=== PATIENT | female | born 1940 | race Caucasian/White ===

== ENCOUNTER 2018-11-30 19:13 | Inpatient (IN) | payer OTHER, MEDICAID ==
[~2018-11-30] VITALS: Ht 152.4 cm; Wt 46.7 kg
[2018-11-30] MEDS ORDERED: MORPHINE SULFATE 4 MG/ML CPJ (NOT FOR IM USE) IV STA (21:08)
[2018-11-30] MEDS ORDERED: ONDANSETRON HCL 4MG/2ML INJ IV STA (21:08)
[2018-11-30] MEDS ORDERED: SODIUM CHLORIDE 0.9% 1,000 ML IV ONE (21:08)
[2018-11-30 21:52] LABS: BASOPHILS % 0.5 % (0.0-2.0); EOSINOPHILS % 2.4 % (0.0-5.0); HEMATOCRIT. 33.5 % (36.0-48.0); HEMOGLOBIN. 11.1 g/dL (12.0-16.0); LYMPHOCYTES % 27.7 % (20.0-50.0); MEAN CORPUSCULAR HEMOGLOBIN 32.1 pg (28.0-32.0); MEAN CORPUSCULAR VOLUME 97.2 fL (81.0-99.0); MEAN PLATELET VOLUME 9.6 fl (7.4-10.4); MONOCYTES % 8.4 % (2.0-8.0); PLATELET 231 x1000/uL (130-400); RED BLOOD CELL COUNT 3.45 mill/uL (4.2-5.4); RED CELL DISTRIBUTION WIDTH 14.1 % (11.6-14.6)
[2018-11-30 21:58] LABS: CHLORIDE 109 mEq/L (98-107)
[2018-11-30 22:02] LABS: PARTIAL THROMBOPLASTIN TIME 27.1 sec (23.4-31.0); PROTHROMBIN TIME 10.3 sec (9.1-11.1)
[2018-11-30] MEDS ORDERED: ASPIRIN 81MG TABLET PO ONE (23:00)
[2018-11-30 23:39] LABS: CLARITY URINE CLEAR (CLEAR); COLOR URINE YELLOW (YELLOW); KETONES URINE NEGATIVE (NEGATIVE); LEUKOCYTE ESTERASE URINE 2+ (NEGATIVE); NITRITE URINE NEGATIVE (NEGATIVE); OCCULT BLOOD URINE NEGATIVE (NEGATIVE); PH URINE 5.5 (4.5-8.0); PROTEIN URINE NEGATIVE (NEGATIVE); SPECIFIC GRAVITY URINE 1.011 (1.005-1.030); UROBILINOGEN URINE 0.2 E.U./dL (0.2-1.0)
[2018-11-30] MEDS ORDERED: CEFTRIAXONE 1 G PREMIX 50 ML IV ONE (23:45)
[2018-12-01] MEDS ORDERED: MAGNESIUM/ALUMINUM HYDROXIDE/SIMETHICONE 30ML UDC PO PRN
[2018-12-01] MEDS ORDERED: IPRATROPIUM/ALBUTEROL 0.5-3(2.5)MG/3ML NEB INH PRN
[2018-12-01] MEDS ORDERED: CLONIDINE 0.1MG TABLET PO PRN
[2018-12-01] MEDS ORDERED: DOCUSATE SODIUM 100MG CAPSULE PO PRN
[2018-12-01] MEDS ORDERED: ONDANSETRON HCL 4MG/2ML INJ IV PRN
[2018-12-01] MEDS ORDERED: ENOXAPARIN 40MG/0.4ML SYR SUBCUT SCH
[2018-12-01] MEDS ORDERED: ACETAMINOPHEN 325MG TABLET PO PRN
[2018-12-01] MEDS: HYDROCODONE/ACETAMINOPHEN 5/325MG TABLET PO PRN ×3 (04:21→17:47)
[2018-12-01 05:18] LABS: BASOPHILS % 0.5 % (0.0-2.0); HEMATOCRIT. 31.6 % (36.0-48.0); HEMOGLOBIN. 10.3 g/dL (12.0-16.0); LYMPHOCYTES % 33.2 % (20.0-50.0); MEAN CORPUSCULAR HEMOGLOBIN 31.8 pg (28.0-32.0); MEAN CORPUSCULAR VOLUME 97.3 fL (81.0-99.0); MEAN PLATELET VOLUME 9.5 fl (7.4-10.4); MONOCYTES % 10.5 % (2.0-8.0); NEUTROPHILS % 52.8 % (40.0-76.0); PLATELET 221 x1000/uL (130-400); RED BLOOD CELL COUNT 3.25 mill/uL (4.2-5.4); RED CELL DISTRIBUTION WIDTH 14.2 % (11.6-14.6)
[2018-12-01 05:28] LABS: LDL CHOLESTEROL 146 mg/dL (5-100)
[2018-12-01 05:30] LABS: CREATINE KINASE 35 IU/L (26-192); HDL CHOLESTEROL 59 mg/dL (40-59)
[2018-12-01 05:32] LABS: CREATINE KINASE MB FRACTION < 1.0 ng/mL (0.5-3.6)
[2018-12-01 08:53] VITALS: BP 130/65
[2018-12-01] MEDS ORDERED: LINA5TAB MT (10:11)
[2018-12-01] MEDS ORDERED: ALLO100T MT (10:11)
[2018-12-01] MEDS ORDERED: ESCI5TAB10 MT (10:11)
[2018-12-01] MEDS ORDERED: BENA20TA10 MT (10:11)
[2018-12-01] MEDS ORDERED: AMLO10TA80 MT (10:11)
[2018-12-01] MEDS ORDERED: BISA10SU21 RC (10:11)
[2018-12-01] MEDS: ENOXAPARIN 30MG/0.3ML SYR SUBCUT SCH (10:34)
[2018-12-01] MEDS: SODIUM CHLORIDE 0.9% 1,000 ML IV SCH (11:36)
[2018-12-01 12:00] VITALS: BP 104/52
[2018-12-01 12:37] LABS: *AMPHETAMINES SCREEN URINE NEGATIVE (NEGATIVE)
[2018-12-01 12:38] LABS: *BARBITURATES SCREEN URINE NEGATIVE (NEGATIVE); *BENZODIAZEPINES SCREEN URINE NEGATIVE (NEGATIVE); *COCAINE SCREEN URINE NEGATIVE (NEGATIVE); METHADONE URINE SCREEN NEGATIVE (NEGATIVE); OPIATES URINE SCREEN PRESUMTIVE POSITIVE (NEGATIVE); PHENCYCLIDINE URINE SCREEN NEGATIVE (NEGATIVE)
[2018-12-01 12:39] LABS: CANNABINOID URINE SCREEN NEGATIVE (NEGATIVE)
[2018-12-01] MEDS ORDERED: LACTULOSE 20G/30ML UDC PO SCH (14:00)
[2018-12-01 16:00] VITALS: BP 110/53
[2018-12-01] MEDS ORDERED: DEXTROSE 50% WATER 50ML SYRINGE IV PRN (16:30)
[2018-12-01 17:06] LABS: CREATINE KINASE 32 IU/L (26-192)
[2018-12-01 17:07] LABS: CREATINE KINASE MB FRACTION < 1.0 ng/mL (0.5-3.6)
[2018-12-01] MEDS: INSULIN LISPRO 100 UNITS/ML SUBCUT SCH ×2 (17:40→21:00)
[2018-12-01] MEDS: BLOOD SUGAR DIAGNOSTIC STRIP TEST SCH ×2 (17:42→21:08)
[2018-12-01 20:00] VITALS: BP 105/52
[2018-12-01] MEDS: AMLODIPINE 5MG TABLET PO SCH (21:00)
[2018-12-01] MEDS: ATORVASTATIN CALCIUM 40MG TABLET PO SCH (21:18)
[2018-12-01] MEDS: CEFTRIAXONE 1 G PREMIX 50 ML IV SCH (21:18)
[2018-12-02] VITALS: BP 104/50
[2018-12-02] MEDS: HYDROCODONE/ACETAMINOPHEN 5/325MG TABLET PO PRN ×3 (01:03→17:25)
[2018-12-02 04:00] VITALS: BP_SYST 105; BP_SYST 110; BP_SYST 98; BP_DIAS 48; BP_DIAS 52; BP_DIAS 58
[2018-12-02] MEDS: INSULIN LISPRO 100 UNITS/ML SUBCUT SCH ×3 (05:51→21:00)
[2018-12-02] MEDS: BLOOD SUGAR DIAGNOSTIC STRIP TEST SCH ×4 (05:51→21:00)
[2018-12-02 06:28] LABS: BASOPHILS % 0.5 % (0.0-2.0); EOSINOPHILS % 2.9 % (0.0-5.0); HEMATOCRIT. 29.8 % (36.0-48.0); HEMOGLOBIN. 9.8 g/dL (12.0-16.0); LYMPHOCYTES % 32.3 % (20.0-50.0); MEAN CORPUSCULAR HEMOGLOBIN 32.1 pg (28.0-32.0); MEAN CORPUSCULAR VOLUME 97.6 fL (81.0-99.0); MEAN PLATELET VOLUME 9.6 fl (7.4-10.4); MONOCYTES % 9.8 % (2.0-8.0); NEUTROPHILS % 54.5 % (40.0-76.0); PLATELET 211 x1000/uL (130-400); RED BLOOD CELL COUNT 3.05 mill/uL (4.2-5.4); RED CELL DISTRIBUTION WIDTH 14.2 % (11.6-14.6)
[2018-12-02 08:00] VITALS: BP 141/61
[2018-12-02] MEDS: AMLODIPINE 5MG TABLET PO SCH ×2 (09:32→22:00)
[2018-12-02] MEDS: ENOXAPARIN 30MG/0.3ML SYR SUBCUT SCH (09:33)
[2018-12-02 12:00] VITALS: BP 138/60
[2018-12-02 16:00] VITALS: BP 128/68
[2018-12-02] MEDS: SODIUM CHLORIDE 0.9% 1,000 ML IV SCH (17:23)
[2018-12-02 20:00] VITALS: BP 123/57
[2018-12-02] MEDS: ATORVASTATIN CALCIUM 40MG TABLET PO SCH (22:00)
[2018-12-02] MEDS: CEFTRIAXONE 1 G PREMIX 50 ML IV SCH (22:01)
[2018-12-03] VITALS: BP 114/55
[2018-12-03] MEDS: HYDROCODONE/ACETAMINOPHEN 5/325MG TABLET PO PRN ×3 (01:44→17:41)
[2018-12-03 04:00] VITALS: BP 141/70
[2018-12-03 05:55] LABS: BASOPHILS % 0.5 % (0.0-2.0); EOSINOPHILS % 3.1 % (0.0-5.0); HEMATOCRIT. 29.5 % (36.0-48.0); HEMOGLOBIN. 9.8 g/dL (12.0-16.0); LYMPHOCYTES % 30.1 % (20.0-50.0); MEAN CORPUSCULAR HEMOGLOBIN 32.4 pg (28.0-32.0); MEAN CORPUSCULAR VOLUME 96.9 fL (81.0-99.0); MEAN PLATELET VOLUME 10.1 fl (7.4-10.4); MONOCYTES % 8.3 % (2.0-8.0); PLATELET 217 x1000/uL (130-400); RED BLOOD CELL COUNT 3.04 mill/uL (4.2-5.4); RED CELL DISTRIBUTION WIDTH 14.3 % (11.6-14.6)
[2018-12-03 06:33] LABS: CHLORIDE 113 mEq/L (98-107)
[2018-12-03] MEDS: BLOOD SUGAR DIAGNOSTIC STRIP TEST SCH ×4 (07:29→21:30)
[2018-12-03] MEDS: INSULIN LISPRO 100 UNITS/ML SUBCUT SCH ×4 (07:29→21:00)
[2018-12-03 08:00] VITALS: BP 143/75
[2018-12-03] MEDS: ASPIRIN 325MG EC TABLET PO SCH (09:18)
[2018-12-03] MEDS: ENOXAPARIN 30MG/0.3ML SYR SUBCUT SCH (09:19)
[2018-12-03] MEDS: AMLODIPINE 5MG TABLET PO SCH ×2 (09:19→21:30)
[2018-12-03 09:37] LABS: T4 FREE 1.25 ng/dL (0.76-1.46)
[2018-12-03 10:41] LABS: FOLIC ACID (FOLATE) SERUM 14.6 ng/mL (>5.38)
[2018-12-03 12:00] VITALS: BP 131/69
[2018-12-03 16:00] VITALS: BP 112/59
[2018-12-03] MEDS: SODIUM CHLORIDE 0.9% 1,000 ML IV SCH (17:40)
[2018-12-03 20:00] VITALS: BP 127/81
[2018-12-03] MEDS: ATORVASTATIN CALCIUM 40MG TABLET PO SCH (21:30)
[2018-12-03] MEDS: CEFTRIAXONE 1 G PREMIX 50 ML IV SCH (21:30)
[2018-12-04] VITALS: BP 120/59
[2018-12-04 04:00] VITALS: BP 127/80
[2018-12-04] MEDS: BLOOD SUGAR DIAGNOSTIC STRIP TEST SCH ×3 (06:47→17:13)
[2018-12-04 07:02] LABS: BASOPHILS % 0.6 % (0.0-2.0); EOSINOPHILS % 4.6 % (0.0-5.0); HEMOGLOBIN. 11.1 g/dL (12.0-16.0); LYMPHOCYTES % 30.4 % (20.0-50.0); MEAN CORPUSCULAR HEMOGLOBIN 32.7 pg (28.0-32.0); MEAN PLATELET VOLUME 9.9 fl (7.4-10.4); MONOCYTES % 9.5 % (2.0-8.0); NEUTROPHILS % 54.9 % (40.0-76.0); PLATELET 225 x1000/uL (130-400); RED CELL DISTRIBUTION WIDTH 14.5 % (11.6-14.6)
[2018-12-04] MEDS: INSULIN LISPRO 100 UNITS/ML SUBCUT SCH ×3 (07:40→17:13)
[2018-12-04 08:09] VITALS: BP 129/53
[2018-12-04] MEDS: ASPIRIN 325MG EC TABLET PO SCH (08:20)
[2018-12-04] MEDS: ENOXAPARIN 40MG/0.4ML SYR SUBCUT SCH (08:20)
[2018-12-04] MEDS: AMLODIPINE 5MG TABLET PO SCH ×2 (08:20→21:00)
[2018-12-04] MEDS: SODIUM CHLORIDE 0.9% 1,000 ML IV SCH (08:20)
[2018-12-04] MEDS: IRON SUCROSE COMPLEX 100 MG/5 ML ML IV SCH (15:15)
[2018-12-04] MEDS: HYDROCODONE/ACETAMINOPHEN 5/325MG TABLET PO PRN (17:39)
[2018-12-04 20:00] VITALS: BP 125/63
[2018-12-04] MEDS: ATORVASTATIN CALCIUM 40MG TABLET PO SCH (21:00)
[2018-12-05] VITALS: BP 143/76
[2018-12-05 04:00] VITALS: BP 133/62
[2018-12-05] MEDS: BLOOD SUGAR DIAGNOSTIC STRIP TEST SCH ×2 (07:10→11:40)
[2018-12-05] MEDS: INSULIN LISPRO 100 UNITS/ML SUBCUT SCH ×2 (07:40→12:15)
[2018-12-05 08:00] VITALS: BP 153/64
[2018-12-05] MEDS: IRON SUCROSE COMPLEX 100 MG/5 ML ML IV SCH (08:34)
[2018-12-05] MEDS: ENOXAPARIN 40MG/0.4ML SYR SUBCUT SCH (08:35)
[2018-12-05] MEDS: ASPIRIN 325MG EC TABLET PO SCH (08:36)
[2018-12-05] MEDS: AMLODIPINE 5MG TABLET PO SCH (08:38)
[2018-12-05 09:05] LABS: BASOPHILS % 0.6 % (0.0-2.0); EOSINOPHILS % 3.9 % (0.0-5.0); HEMATOCRIT. 31.9 % (36.0-48.0); HEMOGLOBIN. 10.7 g/dL (12.0-16.0); LYMPHOCYTES % 27.8 % (20.0-50.0); MEAN CORPUSCULAR HEMOGLOBIN 32.2 pg (28.0-32.0); MEAN CORPUSCULAR VOLUME 95.8 fL (81.0-99.0); MEAN PLATELET VOLUME 9.7 fl (7.4-10.4); NEUTROPHILS % 57.7 % (40.0-76.0); PLATELET 232 x1000/uL (130-400); RED BLOOD CELL COUNT 3.33 mill/uL (4.2-5.4); RED CELL DISTRIBUTION WIDTH 14.6 % (11.6-14.6)
[2018-12-05 09:21] LABS: CHLORIDE 108 mEq/L (98-107)
[2018-12-05 15:41] VITALS: BP 135/68
== END 2018-12-05 18:30 | DRG 64 ==
LOC: ER 19:28 → 8WST 12-01 02:20 → EDBEDREQ 12-01 02:22 → ENRESERV 12-01 07:28
PROVIDERS: ADMIT Internal Medicine; ATTEND Internal Medicine
DX: I63.59 Cerebral infarction due to unspecified occlusion or stenosis of other cerebral artery (principal); N17.0 Acute kidney failure with tubular necrosis; N39.0 Urinary tract infection, site not specified; G81.94 Hemiplegia, unspecified affecting left nondominant side; G89.18 Other acute postprocedural pain; N18.3 Chronic kidney disease, stage 3 (moderate); E78.5 Hyperlipidemia, unspecified; E11.22 Type 2 diabetes mellitus with diabetic chronic kidney disease; D64.9 Anemia, unspecified; E87.8 Other disorders of electrolyte and fluid balance, not elsewhere classified; I12.9 Hypertensive chronic kidney disease with stage 1 through stage 4 chronic kidney disease, or unspecified chronic kidney disease; E78.00 Pure hypercholesterolemia, unspecified; K62.3 Rectal prolapse; D50.9 Iron deficiency anemia, unspecified; R47.01 Aphasia; Z82.49 Family history of ischemic heart disease and other diseases of the circulatory system; Z90.710 Acquired absence of both cervix and uterus
CPT/HCPCS: 36415; 70544; 70551; 71045; 74176; 76830; 76856; 80048; 80061; 80305; 82270; 82550; 82553; 82607; 82728; 82746; 82962; 83036; 83540; 83550; 83735; 83880; 84439; 84443; 84481; 84484; 92610; 93005; 93306; 93880; 93970; 96365; 96375; 97116; 97162; 97166; 97530; 97535; 99285; J0696; J1650; J1815; J2270; J2405; J7030; J7050